=== PATIENT | male | born 1990 | race Caucasian/White ===

== ENCOUNTER 2018-06-02 19:33 | Emergency (ER) | payer BC, OTHER ==
[2018-06-02] MEDS: KETOROLAC 60 MG INJ IM (22:49)
[2018-06-02] MEDS: DIPHENHYDRAMINE 50 MG INJ IM (22:49)
[2018-06-02] MEDS: ONDANSETRON (ODT) 4 MG TAB ODT (22:49)
== END 2018-06-02 23:01 | disposition home or self-care (01) ==
LOC: FTE 19:33
DX: R51 Headache (principal); R11.0 Nausea
CPT/HCPCS: 96372; 99284-25

== ENCOUNTER 2019-05-17 18:04 | Emergency (ER) | payer OTHER, BC | END 2019-05-17 22:06 | disposition home or self-care (01) | LOC: FTE 18:04 → E/R 22:06 | DX: K59.00 Constipation, unspecified (principal); K80.20 Calculus of gallbladder without cholecystitis without obstruction; Z87.891 Personal history of nicotine dependence | CPT/HCPCS: 76705; 99284-25 ==

== ENCOUNTER 2019-07-19 07:36 | Emergency (ER) | payer BC, OTHER | END 2019-07-19 08:12 | disposition home or self-care (01) | LOC: FTE 08:12 | DX: R09.81 Nasal congestion (principal); F17.210 Nicotine dependence, cigarettes, uncomplicated | CPT/HCPCS: 99282 ==